=== PATIENT | female | born 1970 | race Caucasian/White ===

== ENCOUNTER 2023-12-02 08:10 | Outpatient (REF) | payer MEDICAID, SELFPAY ==
[2023-12-02 09:51] LABS: MANUAL DIFF FLAG NO
[2023-12-02 10:49] LABS: Basophils Percent Auto 0.7 % (0-2); Eosinophils Absolute Auto 0.1 X10*3/uL (0.0-0.4); Eosinophils Percent Auto 1.3 % (0-4); Hematocrit 43.4 % (37.0-47.0); Hemoglobin 14.9 g/dl (12.0-16.0); Imm Gran Abs Auto 0.02 X10*3/uL (0.00-0.03); Imm Gran Pct Auto 0.4 % (0.0-0.4); Lymphocytes Absolute Auto 2.3 X10*3/uL (1.2-4.9); Lymphocytes Percent Auto 42.9 % (20-40); Mean Corpuscular HGB Conc 34.3 g/dl (31.0-35.0); Mean Corpuscular Hemoglobin 30.3 pg (27.0-33.0); Mean Corpuscular Volume 88.2 fL (80.0-98.0); Mean Platelet Volume 10.8 fL (9.4-12.3); Monocytes Absolute Auto 0.4 X10*3/uL (0.1-1.2); Monocytes Percent Auto 6.5 % (2-11); Neutrophils Absolute Auto 2.6 x10*3/uL (2.0-8.3); Neutrophils Percent Auto 48.2 % (45-73); Platelet Count 238 X10*3/uL (160-400); Red Blood Count 4.92 X10*6/uL (4.20-5.50); White Blood Count 5.4 X10*3/uL (4.8-10.8)
[2023-12-02 11:22] LABS: Alanine Aminotransferase 32 U/L (0-31); Albumin Level 4.4 g/dL (3.5-5.0); Alkaline Phosphatase 107 U/L (39-117); Anion Gap 16 (12-20); Aspartate Amino Transferase 32 U/L (5-31); Bilirubin Total 0.8 mg/dL (0.0-1.0); Blood Urea Nitrogen 12 mg/dL (9-16); Calcium 9.7 mg/dL (8.4-10.2); Carbon Dioxide 21 mmol/L (22-29); Chloride 108 mmol/L (96-108); Estimated Glomerular Filt Rate > 60; Gamma Glutamyl Transpeptidase 23 U/L (7-33); Glucose Random 80 mg/dL (60-115); Potassium 3.6 mmol/L (3.3-5.1); Sodium 141 mmol/L (135-145); Total Protein 7.1 g/dL (6.5-8.0)
[2023-12-02 11:27] LABS: Ferritin 61 ng/mL (10-250)
[2023-12-02 11:30] LABS: HBS Num1 > 1000.00 mIU/mL (0-7.99); HBc Num1 0.07 S/CO (0.00-0.79); HBsAGNum1 0.36 S/CO (0.00-0.99); HIV AB/AG Nonreactive (Nonreactive); HIV Num 1 0.43 S/CO (0.00-0.99); Hepatitis A Antibody IgM 0.22 Index (0-0.79); Hepatitis B Core Antibody Nonreactive (Nonreactive); Hepatitis B Surface Antigen Negative (Negative); ~HepC Num1 0.11 S/CO (0.00-0.79); ~Hepatitis A Antibody IgM Nonreactive (Nonreactive); ~Hepatitis B Surface Antibody REACTIVE (Nonreactive); ~Hepatitis C Antibody Nonreactive (Nonreactive)
[2023-12-06 14:38] LABS: Anti Nuclear Antibody Screen NEGATIVE (NEGATIVE)
[2023-12-07 10:08] LABS: Mitochondrial Antibodies NEGATIVE (NEGATIVE)
[2023-12-08 06:43] LABS: Smooth Muscle Antibody <20 U (<20)
== END 2023-12-02 08:11 | disposition home or self-care (01) ==
LOC: HO.LAB 08:10
PROVIDERS: PCP Internal Medicine; Visit Provider Nurse Practitioner
DX: Z01.818 Encounter for other preprocedural examination (principal); Z11.4 Encounter for screening for human immunodeficiency virus [HIV]; R10.10 Upper abdominal pain, unspecified; K80.20 Calculus of gallbladder without cholecystitis without obstruction; A04.8 Other specified bacterial intestinal infections; R74.01 Elevation of levels of liver transaminase levels
CPT/HCPCS: 36415; 80053; 82728; 82977; 85025; 86015; 86038; 86381; 86704; 86706; 86709; 86803; 87340; 87389; 99212

== ENCOUNTER 2023-12-02 08:10 | Outpatient (AMB) | payer MEDICAID, SELFPAY ==
--- NOTE | 2023-12-02 08:13 | MHC.OFFVIS ---
Intake Vital Signs 12/02/23 08:32 Height 5 ft 7.5 in Weight 235 lb 14.314 oz BMI 36.4 BP 144/92 H Blood Pressure Location Lt brachial Position Sitting Pulse 66 Intake Visit Reasons: Abdominal pain Intake Note: Cherie presents in the office for abdominal pains. CC: She states that she is having abdominal pains, issues with her gall bladder - she states that she needs to have it removed. She states she would like to speak with the provider about the rest of her concerns. Postulant Required: No Allergies No Known Drug Allergies Allergy (Unknown, Verified 12/02/23 08:33) Unknown HPI Abdominal pain HPI Details 53-YEAR-OLD FEMALE HERE for initial evaluation of abdominal pain. She is referred by [facility]. PMX Hypertension Marcos's thyroiditis Depression/insomnia Chronic fatigue syndrome Chronic kidney disease stage IIIA H pylori infection * SURGICAL HISTORY Breast biopsy Varicose vein surgery * ALLERGIES: NKDA * MEDITECH LABS: No labs in our system ULTRASOUND OF THE ABDOMEN PERFORMED AT [facility] 12/2021 RESULT: US Abdomen Comp US Abdomen Comp Reason: CHRONIC KIDNEY DISEASE; Clinical Question(s): Other: COMPARISON: None. FINDINGS: Liver: Normal in size and echotexture. No focal lesion is seen. Main portal vein patent with normal hepatopetal direction of flow. Gallbladder: Multiple stones. Normal wall thickness. No pericholecystic fluid. Negative Guerrero sign. Biliary Tree: No intrahepatic or extrahepatic bile duct dilation is identified. Common duct: 0.7 cm. Pancreas: No abnormality in the visualized portions of the pancreas. Spleen: Normal in size and echotexture. Right kidney: 11.5 cm in length. Normal parenchymal echotexture and thickness. No hydronephrosis, stone or mass. Left kidney: 10.3 cm in length. Normal parenchymal echotexture and thickness. No hydronephrosis, stone or mass. Aorta: Normal caliber and contour. Inferior vena cava: Normal. Other: No free fluid. IMPRESSION: 1. Normal-appearing kidneys. No hydronephrosis. 2. Cholelithiasis. WSN: [id number] TODAY'S VISIT At age 21 she had HP, was told it was too expensive to treat. She has been having burping and problems, andjuleee asked to be tested for HP, and she was treated and then re tested and it confirmed eradication. She also had an incidental finding of gallstones. 6 mos ago she stared having pain in the epigastrum with HB and regurgitation and dyspepsia. At times the pain would move to the right and to her back. She even presented to the ER and she was told she had gallstones again and she was told she needed to have it removed. She was seen [facility] for this. She does note that that the sx are triggered by fattier food/fried foods. The pain tends to come in the middle of the night and will last for hours before subsiding. It starts as a dull ache and progresses to more of a sharp pain. At its worst it is 8/10. She does not remember whether it is colicky. She had a colon in 2018 with TICs only. She also had some lab work that showed some elevated liver enzymes but her PCP told her that the insurance would not pay for the repeat liver tests. I verify via [facility] that she does have transaminitis with a variable elevation of the alk-phos and a normal bilirubin. Her aunt maternal of pancreatic cancer and there are autoimmune problems including type 1 NIDDM and Hashimotos. No stomach or throat cancer. She will have some episodes of stool urgency but stools are soft and at times ?floaty.? She notes that blueberries will go through whole. Has labs on [facility] site. There is no family history of liver disease known. Will get a HIDA scan and an EGD to confirm if gallbladder disease is the problem in to make sure there is not something else like peptic ulcer disease contributing to her symptom set. Return office visit in 6 weeks to go over her liver labs and of course after the EGD and HIDA scan [facility] Medical History (Updated 12/02/23 @ 09:12 by KWABENA Prabhakar) Hypertension Surgical History (Updated 12/02/23 @ 08:33 by GOPAL Nur) Hx of colonoscopy History of varicose vein ligation and stripping H/O breast biopsy Review of Systems Const Denies fatigue, Denies fever(s), Denies night sweats, Denies poor appetite and Denies weight loss Eyes Details: glasses Reports requires corrective lenses ENT Reports Normal hearing present, Denies dental pain, Denies dysphagia, Denies hearing loss, Denies mouth pain, Denies odynophagia, Denies throat swelling, Denies tongue swelling and Reports other (Dentition adequate) Card Reports no additional complaints Resp Reports no additional complaints GI Details: Fecal urgency with some biliary/yellow stools Reports abdominal pain, Denies melena, Denies bloating, Denies hematochezia, Denies constipation, Denies GI cramping, Denies dysphagia, Denies excessive flatus, Denies early satiety, Denies heartburn, Denies diarrhea, Denies nausea, Denies odynophagia, Denies vomiting and Denies hematemesis Skin/Breast Denies pruritus, Denies lesions, Denies rash and Denies jaundice Neuro Reports Normal hearing present and Denies Abnormal speech present Endo Denies fatigue Aller/Immun Denies throat swelling and Denies tongue swelling Physical Exam Vital Signs: Last Vital Signs Pulse 66 12/02/23 08:32 BP 144/92 H 12/02/23 08:32 BMI result Body Mass Index 36.4 Const General: cooperative, no acute distress, well developed and well groomed Nutritional Appearance: well nourished and obese Orientation/consciousness: oriented to person, oriented to place and oriented to time Limitations: No language barrier HEENT Head: Yes normocephalic and Yes atraumatic Eyes General: appearance normal, both eyes and all related structures Pupils: Equal, round and reactive pupils present Neck Neck: Yes normal visual inspection and Yes no lymphadenopathy Thyroid: Thyroid normal Resp Effort & Inspection: normal respiratory effort and able to speak in complete sentences Auscultation: clear to auscultation bilaterally Cardio Rate: regular rate Rhythm: regular rhythm Heart sounds: Normal, physiologic split S2 sound present Peripheral pulses: radial pulses present and posterior tibial pulses present GI Inspection: No distended, No Abdominal panniculus present and Yes obesity Palpation (GI): Soft to palpation, Tenderness to palpation present (GI) in the RUQ, no guarding, not rigid and No hepatosplenomegaly present Percussion: Yes normal to percussion Auscultation: normal bowel sounds Rectal Exam - Female: deferred Skin General skin exam: no rashes or lesions noted, turgor normal, skin not dry, no jaundice, No spider nevi and no striae Rashes: no rashes Nails: normal Neuro General: oriented to person, oriented to place and oriented to time Cranial nerves: Yes Equal, round and reactive pupils present and Yes Normal hearing present Speech: No Abnormal speech present Extrem General: Yes normal to inspection, No clubbing, No cyanosis and No edema Psych Appearance: grossly normal and well kempt Mental Status: mental status grossly normal Speech and movement: Normal speech and movement present Affect: normal affect Attitude: cooperative Thought process: Normal thought process present and not confabulating Thought content: Normal thought content present Insight: Good insight present (Psych) Judgement: Good judgement present (Psych) Assessment & Plan Assessment & Plan (1) Upper abdominal pain: Code(s): R10.10 - Upper abdominal pain, unspecified (2) Gallstones: Code(s): K80.20 - Calculus of gallbladder without cholecystitis without obstruction (3) H. pylori infection: Code(s): A04.8 - Other specified bacterial intestinal infections (4) Transaminitis: Code(s): R74.01 - Elevation of levels of liver transaminase levels (5) Pre-op examination: Code(s): Z01.818 - Encounter for other preprocedural examination Plan At age 21 she had HP, was told it was too expensive to treat. She has been having burping and problems, andshe asked to be tested for HP, and she was treated and then re tested and it confirmed eradication. She also had an incidental finding of gallstones. 6 mos ago she stared having pain in the epigastrum with HB and regurgitation and dyspepsia. At times the pain would move to the right and to her back. She even presented to the ER and she was told she had gallstones again and she was told she needed to have it removed. She was seen [facility] for this. She does note that that the sx are triggered by fattier food/fried foods. The pain tends to come in the middle of the night and will last for hours before subsiding. It starts as a dull ache and progresses to more of a sharp pain. At its worst it is 8/10. She does not remember whether it is colicky. She had a colon in 2018 with TICs only. She also had some lab work that showed some elevated liver enzymes but her PCP told her that the insurance would not pay for the repeat liver tests. I verify via [facility] that she does have transaminitis with a variable elevation of the alk-phos and a normal bilirubin. Her aunt maternal of pancreatic cancer and there are autoimmune problems including type 1 NIDDM and Hashimotos. No stomach or throat cancer. She will have some episodes of stool urgency but stools are soft and at times ?floaty.? She notes that blueberries will go through whole. Has labs on [facility] site. There is no family history of liver disease known. Will get a HIDA scan and an EGD to confirm if gallbladder disease is the problem in to make sure there is not something else like peptic ulcer disease contributing to her symptom set. Return office visit in 6 weeks to go over her liver labs and of course after the EGD and HIDA scan Orders: Orders Comprehensive Met. Panel Today A04.8 - Other specified bacterial intestinal infections, K80.20 - Calculus of gallbladder without cholecystitis without obstruction, R10.10 - Upper abdominal pain, unspecified, R74.01 - Elevation of levels of liver transaminase levels, Z01.818 - Encounter for other preprocedural examination Complete Blood Count Auto Diff Today A04.8 - Other specified bacterial intestinal infections, K80.20 - Calculus of gallbladder without cholecystitis without obstruction, R10.10 - Upper abdominal pain, unspecified, R74.01 - Elevation of levels of liver transaminase levels, Z01.818 - Encounter for other preprocedural examination AGATHA Reflex Titer and Pattern Today A04.8 - Other specified bacterial intestinal infections, K80.20 - Calculus of gallbladder without cholecystitis without obstruction, R10.10 - Upper abdominal pain, unspecified, R74.01 - Elevation of levels of liver transaminase levels, Z01.818 - Encounter for other preprocedural examination Ferritin Today A04.8 - Other specified bacterial intestinal infections, K80.20 - Calculus of gallbladder without cholecystitis without obstruction, R10.10 - Upper abdominal pain, unspecified, R74.01 - Elevation of levels of liver transaminase levels, Z01.818 - Encounter for other preprocedural examination Gamma Glutamyl Transpeptidase Today A04.8 - Other specified bacterial intestinal infections, K80.20 - Calculus of gallbladder without cholecystitis without obstruction, R10.10 - Upper abdominal pain, unspecified, R74.01 - Elevation of levels of liver transaminase levels, Z01.818 - Encounter for other preprocedural examination Smooth Muscle Antibody Today A04.8 - Other specified bacterial intestinal infections, K80.20 - Calculus of gallbladder without cholecystitis without obstruction, R10.10 - Upper abdominal pain, unspecified, R74.01 - Elevation of levels of liver transaminase levels, Z01.818 - Encounter for other preprocedural examination EGD with Rodríguez - GI Use Only Today A04.8 - Other specified bacterial intestinal infections, K80.20 - Calculus of gallbladder without cholecystitis without obstruction, R10.10 - Upper abdominal pain, unspecified, R74.01 - Elevation of levels of liver transaminase levels, Z01.818 - Encounter for other preprocedural examination Hepatitis A,B,C Profile Today A04.8 - Other specified bacterial intestinal infections, K80.20 - Calculus of gallbladder without cholecystitis without obstruction, R10.10 - Upper abdominal pain, unspecified, R74.01 - Elevation of levels of liver transaminase levels, Z01.818 - Encounter for other preprocedural examination HIV Ab/Ag Today A04.8 - Other specified bacterial intestinal infections, K80.20 - Calculus of gallbladder without cholecystitis without obstruction, R10.10 - Upper abdominal pain, unspecified, R74.01 - Elevation of levels of liver transaminase levels, Z01.818 - Encounter for other preprocedural examination Mitochondrial Antibody Today A04.8 - Other specified bacterial intestinal infections, K80.20 - Calculus of gallbladder without cholecystitis without obstruction, R10.10 - Upper abdominal pain, unspecified, R74.01 - Elevation of levels of liver transaminase levels, Z01.818 - Encounter for other preprocedural examination Coding Level of Care Code New Pt Level 3 (54092) Diagnoses Upper abdominal pain R10.10 Gallstones K80.20 H. pylori infection A04.8 Transaminitis R74.01 Pre-op examination Z01.818
[2023-12-02 08:32] VITALS: BP 144/92; PULSE 66; BMI 36.4
== END 2023-12-02 09:21 | disposition home or self-care (01) ==
PROVIDERS: PCP Internal Medicine; Visit Provider Nurse Practitioner
DX: R10.10 Upper abdominal pain, unspecified (principal); K80.20 Calculus of gallbladder without cholecystitis without obstruction; A04.8 Other specified bacterial intestinal infections; R74.01 Elevation of levels of liver transaminase levels; Z01.818 Encounter for other preprocedural examination
CPT/HCPCS: 99203

== ENCOUNTER 2024-05-30 08:58 | Outpatient (AMB) | payer SELFPAY ==
[2024-05-30 09:02] VITALS: BP 138/78; PULSE 71; BMI 36.4
--- NOTE | 2024-05-30 09:02 | MHC.OFFVIS ---
Vital Signs 05/30/24 09:02 Height 5 ft 7.5 in Weight 235 lb 14.314 oz BMI 36.4 BP 138/78 Blood Pressure Location Lt brachial Position Sitting Pulse 71 Intake Visit Reasons: Rectal pain and bleeding Intake Note: Cherie presents to in office follow up of labs and rectal pain and bleeding. CC: Patient c/o rectal bleeding and rectal pain most recently the last week. Denies other GI symptoms. [employer] Required: No Accompanied by: Self / Same As Patient Allergies No Known Allergies Allergy (Verified 05/30/24 09:11) HPI HPI Rectal pain and bleeding: Details: Assessment & Plan (1) Upper abdominal pain: Code(s): R10.10 - Upper abdominal pain, unspecified (2) Gallstones: Code(s): K80.20 - Calculus of gallbladder without cholecystitis without obstruction (3) H. pylori infection: Code(s): A04.8 - Other specified bacterial intestinal infections (4) Transaminitis: Code(s): R74.01 - Elevation of levels of liver transaminase levels (5) Pre-op examination: Code(s): Z01.818 - Encounter for other preprocedural examination Plan At age 21 she had HP, was told it was too expensive to treat. She has been having burping and problems, andshe asked to be tested for HP, and she was treated and then re tested and it confirmed eradication. She also had an incidental finding of gallstones. 6 mos ago she stared having pain in the epigastrum with HB and regurgitation and dyspepsia. At times the pain would move to the right and to her back. She even presented to the ER and she was told she had gallstones again and she was told she needed to have it removed. She was seen [facility] for this. She does note that that the sx are triggered by fattier food/fried foods. The pain tends to come in the middle of the night and will last for hours before subsiding. It starts as a dull ache and progresses to more of a sharp pain. At its worst it is 8/10. She does not remember whether it is colicky. She had a colon in 2018 with TICs only. She also had some lab work that showed some elevated liver enzymes but her PCP told her that the insurance would not pay for the repeat liver tests. I verify via [facility] that she does have transaminitis with a variable elevation of the alk-phos and a normal bilirubin. Her aunt maternal of pancreatic cancer and there are autoimmune problems including type 1 NIDDM and Hashimotos. No stomach or throat cancer. She will have some episodes of stool urgency but stools are soft and at times ?floaty.? She notes that blueberries will go through whole. Has labs on [facility] site. There is no family history of liver disease known. Will get a HIDA scan and an EGD to confirm if gallbladder disease is the problem in to make sure there is not something else like peptic ulcer disease contributing to her symptom set. Return office visit in 6 weeks to go over her liver labs and of course after the EGD and HIDA scan Orders: Orders Comprehensive Met. Panel Today A04.8 - Other specified bacterial intestinal infections, K80.20 - Calculus of gallbladder without cholecystitis without obstruction, R10.10 - Upper abdominal pain, unspecified, R74.01 - Elevation of levels of liver transaminase levels, Z01.818 - Encounter for other preprocedural examination Complete Blood Count Auto Diff Today A04.8 - Other specified bacterial intestinal infections, K80.20 - Calculus of gallbladder without cholecystitis without obstruction, R10.10 - Upper abdominal pain, unspecified, R74.01 - Elevation of levels of liver transaminase levels, Z01.818 - Encounter for other preprocedural examination AGATHA Reflex Titer and Pattern Today A04.8 - Other specified bacterial intestinal infections, K80.20 - Calculus of gallbladder without cholecystitis without obstruction, R10.10 - Upper abdominal pain, unspecified, R74.01 - Elevation of levels of liver transaminase levels, Z01.818 - Encounter for other preprocedural examination Ferritin Today A04.8 - Other specified bacterial intestinal infections, K80.20 - Calculus of gallbladder without cholecystitis without obstruction, R10.10 - Upper abdominal pain, unspecified, R74.01 - Elevation of levels of liver transaminase levels, Z01.818 - Encounter for other preprocedural examination Gamma Glutamyl Transpeptidase Today A04.8 - Other specified bacterial intestinal infections, K80.20 - Calculus of gallbladder without cholecystitis without obstruction, R10.10 - Upper abdominal pain, unspecified, R74.01 - Elevation of levels of liver transaminase levels, Z01.818 - Encounter for other preprocedural examination Smooth Muscle Antibody Today A04.8 - Other specified bacterial intestinal infections, K80.20 - Calculus of gallbladder without cholecystitis without obstruction, R10.10 - Upper abdominal pain, unspecified, R74.01 - Elevation of levels of liver transaminase levels, Z01.818 - Encounter for other preprocedural examination EGD with Rodríguez - GI Use Only Today A04.8 - Other specified bacterial intestinal infections, K80.20 - Calculus of gallbladder without cholecystitis without obstruction, R10.10 - Upper abdominal pain, unspecified, R74.01 - Elevation of levels of liver transaminase levels, Z01.818 - Encounter for other preprocedural examination Hepatitis A,B,C Profile Today A04.8 - Other specified bacterial intestinal infections, K80.20 - Calculus of gallbladder without cholecystitis without obstruction, R10.10 - Upper abdominal pain, unspecified, R74.01 - Elevation of levels of liver transaminase levels, Z01.818 - Encounter for other preprocedural examination HIV Ab/Ag Today A04.8 - Other specified bacterial intestinal infections, K80.20 - Calculus of gallbladder without cholecystitis without obstruction, R10.10 - Upper abdominal pain, unspecified, R74.01 - Elevation of levels of liver transaminase levels, Z01.818 - Encounter for other preprocedural examination Mitochondrial Antibody Today A04.8 - Other specified bacterial intestinal infections, K80.20 - Calculus of gallbladder without cholecystitis without obstruction, R10.10 - Upper abdominal pain, unspecified, R74.01 - Elevation of levels of liver transaminase levels, Z01.818 - Encounter for other preprocedural examination LABS: Laboratory Tests 12/02/23 09:49 WBC 5.4 Hgb 14.9 Hct 43.4 Plt Count 238 Estimated GFR > 60 Total Bilirubin 0.8 GGT 23 AST 32 H ALT 32 H Alkaline Phosphatase 107 AGATHA Screen NEGATIVE Anti-Mitochondrial Ab NEGATIVE Anti-Smooth Muscle Ab <20 Hepatitis A IgM Ab Nonreactive Hep Bs Antigen Negative Hep Bs Antibody REACTIVE Hep B Core Total Ab Nonreactive Hepatitis C Ab (EIA) Nonreactive HIV 1&2 Ab/P24 Ag 4thGn Nonreactive EGD SCHEDULED FOR August BIOPSY TODAY'S VISIT She never had the HIDA scan, apparently there was a problem with scheduling. In the meantime, she had an emergent ozzy at [facility] and is feeling generally better. She still has some regurg, marilyn if she drinks too much fluids. Her BM's are normal and formed, no diarrhea. BUT she has been whalen ving RB on the TT and rectal pain like a cut. This was preceded by itching and she had some relief from roid cream. She also feels rectal burning. Her stools smell weird, sulferish. Adding colonoscopy to EGD, getting copy of last scope 2018 form [facility]. She bought OTC roid cream and will try - educated on importance of rectal applicator. Rectal exam roids at 9 and 6 oclock with area of pain /irritation at about 5 oclock, no active infection multiple skin tags. ROV 6 weeks. [facility] Medical History (Updated 06/07/24 @ 15:41 by KWABENA Prabhakar) Upper abdominal pain Marcos's thyroiditis Chronic fatigue Depression Hypertension Surgical History Hx of colonoscopy History of varicose vein ligation and stripping H/O breast biopsy Social History Alcohol intake: current Alcohol intake frequency: a few times a month Patient Tobacco Use Status: Never used Tobacco Review of Systems Const Denies fatigue, Denies fever(s), Denies night sweats, Denies poor appetite and Denies weight loss Eyes Details: glasses Reports requires corrective lenses ENT Reports Normal hearing present, Denies dental pain, Denies dysphagia, Denies hearing loss, Denies mouth pain, Denies odynophagia, Denies throat swelling, Denies tongue swelling and Reports other (Dentition adequate) Card Reports no additional complaints Resp Reports no additional complaints GI Details: Denies abdominal pain, Denies melena, Denies bloating, Reports hematochezia, Denies constipation, Denies GI cramping, Denies dysphagia, Denies excessive flatus, Denies early satiety, Denies heartburn, Denies diarrhea, Denies nausea, Denies odynophagia, Denies vomiting and Denies hematemesis Skin/Breast Denies pruritus, Denies lesions, Denies rash and Denies jaundice Neuro Reports Normal hearing present and Denies Abnormal speech present Endo Denies fatigue Aller/Immun Denies throat swelling and Denies tongue swelling Physical Exam Vital Signs: Last Vital Signs Pulse 71 05/30/24 09:02 BP 138/78 05/30/24 09:02 BMI result Body Mass Index 36.4 Const General: cooperative, no acute distress, well developed and well groomed Nutritional Appearance: well nourished and obese Orientation/consciousness: oriented to person, oriented to place and oriented to time Limitations: No language barrier HEENT Head: Yes normocephalic and Yes atraumatic Eyes General: appearance normal, both eyes and all related structures Pupils: Equal, round and reactive pupils present Neck Neck: Yes normal visual inspection and Yes no lymphadenopathy Thyroid: Thyroid normal Resp Effort & Inspection: normal respiratory effort and able to speak in complete sentences Auscultation: clear to auscultation bilaterally Cardio Rate: regular rate Rhythm: regular rhythm Heart sounds: Normal, physiologic split S2 sound present Peripheral pulses: radial pulses present and posterior tibial pulses present GI Inspection: No distended, No Abdominal panniculus present and Yes obesity Palpation (GI): Soft to palpation, nontender, no guarding, not rigid and No hepatosplenomegaly present Percussion: Yes normal to percussion Auscultation: normal bowel sounds Rectal Exam - Female: deferred Skin General skin exam: no rashes or lesions noted, turgor normal, skin not dry, no jaundice, No spider nevi and no striae Rashes: no rashes Nails: normal Neuro General: oriented to person, oriented to place and oriented to time Cranial nerves: Yes Equal, round and reactive pupils present and Yes Normal hearing present Speech: No Abnormal speech present Extrem General: Yes normal to inspection, No clubbing, No cyanosis and No edema Psych Appearance: grossly normal and well kempt Mental Status: mental status grossly normal Speech and movement: Normal speech and movement present Affect: normal affect Attitude: cooperative Thought process: Normal thought process present and not confabulating Thought content: Normal thought content present Insight: Fair insight present (Psych) Judgement: Fair judgement present (Psych) Results Reviewed Results Reviewed: Laboratory Tests 12/02/23 09:49 WBC 5.4 Hgb 14.9 Hct 43.4 Plt Count 238 Estimated GFR > 60 Total Bilirubin 0.8 GGT 23 AST 32 H ALT 32 H Alkaline Phosphatase 107 Assessment & Plan Assessment & Plan (1) Rectal bleeding: Code(s): K62.5 - Hemorrhage of anus and rectum Category: Medical (2) Pre-op examination: Code(s): Z01.818 - Encounter for other preprocedural examination Category: Medical (3) Gallstones: Comment: Patient had emergent cholecystectomy at [facility] Code(s): K80.20 - Calculus of gallbladder without cholecystitis without obstruction Category: Medical Plan She never had the HIDA scan, apparently there was a problem with scheduling. In the meantime, she had an emergent ozzy at [facility] and is feeling generally better. She still has some regurg, marilyn if she drinks too much fluids. Her BM's are normal and formed, no diarrhea. BUT she has been whalen ving RB on the TT and rectal pain like a cut. This was preceded by itching and she had some relief from roid cream. She also feels rectal burning. Her stools smell weird, sulferish. Adding colonoscopy to EGD, getting copy of last scope 2018 form [facility]. She bought OTC roid cream and will try - educated on importance of rectal applicator. Rectal exam roids at 9 and 6 oclock with area of pain /irritation at about 5 oclock, no active infection multiple skin tags. There are no prior problems with anesthesia or sedation. She denies any problems with anesthesia or sedation. There are no infectious disease problems. There is no known family history of cancer or polyps. ROV 6 weeks. Orders: Orders EGD/[place] Combo - GI Use Only 05/30/24 K62.5 - Hemorrhage of anus and rectum, Z01.818 - Encounter for other preprocedural examination Medications: New sodium,potassium,mag sulfates 17.5-3.13-1.6 gram (Suprep Bowel Prep Kit) 480 mL orally; FOR COLONOSCOPY PREP 354 mL 0RF Coding Level of Care Code Est Pt Level 4 (92707) Diagnoses Rectal bleeding K62.5 Pre-op examination Z01.818 Gallstones K80.20
== END 2024-05-30 10:05 | disposition home or self-care (01) ==
PROVIDERS: PCP Internal Medicine; Visit Provider Nurse Practitioner
DX: K62.5 Hemorrhage of anus and rectum (principal); Z01.818 Encounter for other preprocedural examination; K80.20 Calculus of gallbladder without cholecystitis without obstruction
CPT/HCPCS: 99214

== ENCOUNTER → 2024-05-30 08:58 | Outpatient (BNVA) | payer SELFPAY | PROVIDERS: PCP Internal Medicine; Visit Provider Nurse Practitioner | DX: Z01.818 Encounter for other preprocedural examination (principal); K80.20 Calculus of gallbladder without cholecystitis without obstruction; K62.5 Hemorrhage of anus and rectum | CPT/HCPCS: 99212 ==

== ENCOUNTER 2024-08-17 07:36 | Day surgery (SDC) | payer BC, SELFPAY ==
[2024-08-15 11:10] VITALS: BMI 36.3
--- NOTE | 2024-08-16 10:22 | P.CONAN_ITS ---
Documented by User: Maryam Morel NP 08/16/24 10:22 HPI - Anesthesia Eval Consult details Narrative: 54yo F for Upper Endoscopy and Colonoscopy PMFSH Active Problems Active Problems: All Active Problems Rectal bleeding (Acute) Pre-op examination (Acute) Transaminitis (Acute) Gallstones (Acute) Insomnia (Acute) Depression (Acute) H. pylori infection (Acute) Stage 3a chronic kidney disease (Acute) Chronic fatigue syndrome (Acute) Marcos's thyroiditis (Acute) Past Medical History Medical History (Updated 06/07/24 @ 15:41 by KWABENA Prabhakar) Marcos's thyroiditis Chronic fatigue Depression Upper abdominal pain Hypertension Surgical History Surgical History (Updated 08/15/24 @ 11:13 by Molly Bermudez RN) Hx of cholecystectomy Hx of colonoscopy History of varicose vein ligation and stripping H/O breast biopsy Social History Social History (Reviewed 05/30/24 @ 09:10 by Keren Zheng [facility]) Alcohol intake: current Alcohol intake frequency: holidays/special occasions only Patient Tobacco Use Status: Never used Tobacco Have you been hit, kicked, punched, or otherwise hurt by someone within the past year? If so, by whom?: No Are you DNR?: No Advance Directives: No Advance Directives Information Provided: Yes Meds Allergies Allergy/AdvReac Type Severity Reaction Status Date / Time No Known Allergies Allergy Verified 05/30/24 09:11 Home Medications ?Medication ?Instructions ?Recorded ?Confirmed ?Last Taken ?Type albuterol sulfate 90 mcg/actuation 2 puff inhalation Q4-6H PRN 12/01/23 04/11/24 Unknown History aerosol inhaler Shortness Of Breath Or Wheezing levothyroxine 200 mcg tablet 200 mcg PO DAILY 12/01/23 04/11/24 08/17/24 History trazodone 150 mg tablet 150 mg PO BEDTIME 12/01/23 04/11/24 08/16/24 History Exam Height,Weight and Vital Signs: Height 5 ft 7.5 in Weight 106.594 kg Assessment and Plan Assessment Anesthesia Assessment: Chart Reviewed Documented by User: Jp Narayan MD 08/17/24 09:22 [facility] Past Medical History Medical History (Updated 06/07/24 @ 15:41 by KWABENA Prabhakar) Marcos's thyroiditis Chronic fatigue Depression Upper abdominal pain Hypertension Family History Family history of problems with anesthesia: No Surgical History Surgical History (Updated 08/15/24 @ 11:13 by Molly Bermudez RN) Hx of cholecystectomy Hx of colonoscopy History of varicose vein ligation and stripping H/O breast biopsy History of Problems with Anesthesia: No Social History Social History Alcohol intake: current Alcohol intake frequency: holidays/special occasions only Patient Tobacco Use Status: Never used Tobacco Have you been hit, kicked, punched, or otherwise hurt by someone within the past year? If so, by whom?: No Are you DNR?: No Advance Directives: No Advance Directives Information Provided: Yes Meds Allergies Allergy/AdvReac Type Severity Reaction Status Date / Time No Known Allergies Allergy Verified 05/30/24 09:11 Home Medications ?Medication ?Instructions ?Recorded ?Confirmed ?Last Taken ?Type albuterol sulfate 90 mcg/actuation 2 puff inhalation Q4-6H PRN 12/01/23 04/11/24 Unknown History aerosol inhaler Shortness Of Breath Or Wheezing levothyroxine 200 mcg tablet 200 mcg PO DAILY 12/01/23 04/11/24 08/17/24 History trazodone 150 mg tablet 150 mg PO BEDTIME 12/01/23 04/11/24 08/16/24 History Exam Airway Mallampati Class: II TM Dist: <=3cm Neck ROM: Full Loose/Missing/Broken Teeth: No Heart: ok Lungs: ok Assessment and Plan Assessment Anesthesia Assessment: Anesthesia Plan Discussed Final Anesthetic Review Family History of Problems with Anesthesia: No History of Problems with Anesthesia: No NPO: Yes ASA Class: III Final Preanesthetic Review: No Changes in Pt Med Stat, Meds/Allgs Chart Reviewed, Consent Obtained/Reviewed and Anes Risks/Benef Reviewed Patient Risk: Intermediate Procedure Risk: Intermediate Anesthetic Plan Anesthetic Plan: Agree w/ Assess. and Plan Disposition: Standard PACU
--- NOTE | ~2024-08-17 | XR_ITS ---
EXAMINATION: XR ABDOMEN KUB CLINICAL INDICATION: s/p colonoscopy c/o abdominal pain, r/o perf COMPARISON: None available. TECHNIQUE: Upright and supine AP views of the abdomen. FINDINGS: No intra-abdominal free air. Nonobstructive bowel gas pattern. No abnormal soft tissue calcification. Right upper quadrant surgical clips. No acute osseous abnormality. XR/XR KUB IMPRESSION: No intra-abdominal free air. Nonobstructive bowel gas pattern. Electronically signed by: Marvin Castelan MD 08/17/2024 03:06 PM [facility]
--- NOTE | ~2024-08-17 | XR_ITS ---
EXAMINATION: XR CHEST CLINICAL INFORMATION: Chest post colonoscopy. Abdominal pain. Evaluate for perforation. COMPARISON: None available. TECHNIQUE: Frontal view of the chest was obtained. FINDINGS: No airspace consolidation. No pleural effusion or pneumothorax. Unremarkable cardiomediastinal silhouette. No free air beneath the hemidiaphragms. XR/XR chest 1V IMPRESSION: 1. No acute cardiopulmonary findings. 2. No free air beneath the hemidiaphragms. Electronically signed by: Marvin Castelan MD 08/17/2024 03:05 [facility]
[2024-08-17 07:59] VITALS: BP 155/95; PULSE 70; RESP 20; TEMP 36.9; O2SAT 96; BMI 36.6
[2024-08-17] MEDS: Lactated Ringers 1,000 ML 100 ML IVCONT (08:18)
--- NOTE | 2024-08-17 08:31 | P.HPSUR_ITS ---
Pre-Procedural Eval Section A - 24 Hr Update-Section A only Date of Service: 08/17/24 Section B - Complete if H&P > 30 days Chief Complaint: Calculus of gallbladder,rectal bleed,pain Relevant Family History (Specify if Yes): No Relevant Social History: None Present Medications: see Short Stay Collaborative assessment Medical History: Significant History (Marcos's thyroiditis Chronic fatigue Depression Upper abdominal pain Hypertension) History of Previous Operations: Relevant previous surgery/procedure and date(s) (Hx of cholecystectomy Hx of colonoscopy History of varicose vein ligation and stripping H/O breast biopsy) Allergies: Allergies Allergy/AdvReac Type Severity Reaction Status Date / Time No Known Allergies Allergy Verified 05/30/24 09:11 Review of Systems Sugical H&P ROS: Negative: Constitution, Cardiovascular, Respiratory, Neurolog ical, Psychiatric, Hem-Onc, Allergic/Immunologic, Gastrointestinal, Genitourinary, Musculoskeletal, Integumentary, Endocrine and Eyes/Ears/Nose/Throat Exam Surgical H&P Exam: Normal: HEENT, Normal: Heart, Normal: Lungs, Normal: Extremities, Normal: Abdomen, Normal: Skin and Normal: Neurological Plan Diagnosis/Plan: Unchanged I have reviewed the history and physical and performed a pertinent physical examination on my patient. No changes have occurred unless specified. Time Spent With Patient Time: Total time managing care of this patient today ____ minutes.
--- NOTE | 2024-08-17 09:56 | P.OPN-COLO_ITS ---
Colonoscopy Operative Note Operative Note Date of Service: 08/17/24 Narrative: Operative Information Procedure Description: EGD, Colonoscopy Indication: rectal bleeding and abdominal pain Anesthesia: MAC FLEXIBLE TRANSORAL UPPER GASTROINTESTINAL ENDOSCOPY AND COLONOSCOPY PROCEDURE NOTE UPPER ENDOSCOPY Consent: Indications for the procedure and potential complications of bleeding, perforation, reaction to medications and missed diagnosis were discussed with the patient and informed consent was obtained. Instrument: Olympus GIF H 190 J mid size upper endoscope Monitoring: Vital signs and clinical assessment, continuous EKG monitoring, Pulse oximetry, Carbon Dioxide monitoring and blood pressure monitoring were done throughout the procedure. Procedure: The patient was placed in the left lateral decubitis position and pre-procedure medications were administered and a bite block was placed. The endoscope was inserted into the mouth and advanced under direct vision to the third part of duodenum. A careful inspection was made as the upper endoscope was withdrawn including a retroflexed examination of the proximal stomach; Findings and interventions are described below. Findings: Larynx:normal Esophagus: GE junction at 38 cm, diaphragm hiatus at 38 cm, mild esophagitis bx taken from random esophagus and GEJ Stomach: Patchy erythema. Biopsies were obtained. Grade 2 flap valve on retroflexed examination of the cardia. Duodenum: Normal bulb and descending duodenum, bx taken Intervention: Biopsies as noted above, COLONOSCOPY Instrument: Olympus variable stiffness pediatric scope 190L Colonoscopy Monitoring: Vital signs and clinical assessment, continuous EKG monitoring, Pulse oximetry, Carbon Dioxide monitoring and blood pressure monitoring were done throughout the procedure. Colon withdrawal time was 14 minutes. Procedure: The patient was placed in the left lateral decubitis position and pre-procedure medications were administered. After a digital rectal examination of the ano-rectum, the video colonoscope was inserted into the rectum and advanced through the colon to the cecum/TI. The colonoscope was slowly withdrawn in a retrograde panoramic fashion and the colon mucosa was carefully examined including a retroflexed view of the rectum. Findings and interventions are described below. Procedure Difficulty:moderate Findings: Terminal Ileum-normal, bx taken Random colo bx from right and left colon Cecum: 5-6 mm sessile polyp removed with cold snare Ascending Colon: 6-7 mm sessile polyp removed with cold snare Transverse Colon -normal Descending Colon:normal Sigmoid Colon: moderate severe diverticulosis , 12 mm sessile polyp noted in distal sigmoid, lifted and injected with 2 cc of epinephrine then removed with cold snare Rectum: Retroflexion with small internal hemorrhoids, grade I Anorectum - normal Colon preparation: [place] Bowel Preparation Scale Right colon; 2 Transverse colon: 2 Left colon; 2 (0 = Unprepared colon segment with mucosa not seen due to solid stool that cannot be cleared. 1 = Portion of mucosa of the colon segment seen, but other areas of the colon segment not well seen due to staining, residual stool and/or opaque liquid. 2 = Minor amount of residual staining, small fragments of stool and/or opaque liquid, but mucosa of colon segment seen well. 3 = Entire mucosa of colon segment seen well with no residual staining, small fragments of stool or opaque liquid) Impression and Post Procedure Diagnosis: Endoscopy Findings: gastritis esophagitis Colonoscopy Findings: diverticulosis colon polyps x 3 internal hemorrhoids Plan: Await Pathology results Repeat Colonoscopy in 3 years due to polyps or earlier if clinically indicated High fiber diet leaflet avoid straining at stool, epsom salts and sitz bath, anusol supps or cream if H pylori pos then treat consider trial of PPI Above findings were reviewed with the patient and relevant handouts were provided if indicated.
[2024-08-17 10:03] VITALS: BP 140/88; PULSE 69; RESP 18; TEMP 36.1; O2SAT 96
[2024-08-17 10:18] VITALS: BP 157/96; PULSE 65; RESP 18; O2SAT 99
[2024-08-17 10:33] VITALS: BP 154/74; PULSE 60; RESP 17; TEMP 36.1; O2SAT 95
[2024-08-17 11:07] VITALS: BP 147/76; PULSE 62; RESP 17; TEMP 36.1; O2SAT 97
[2024-08-17] MEDS: Simethicone 80 MG TAB.CHEW PO (11:50)
[2024-08-17] MEDS: Acetaminophen 325 MG TABLET 975 MG PO (12:06)
[2024-08-17] MEDS: Dicyclomine HCl 10 MG CAPSULE PO (12:07)
[2024-08-17 12:17] VITALS: BP 156/95; PULSE 70; RESP 16; TEMP 36.1; O2SAT 97
== END 2024-08-17 13:44 | disposition home or self-care (01) ==
PROVIDERS: PCP Internal Medicine; Visit Provider Internal Medicine Gastroenterology
PROC: (CPT 45385; principal; 2024-08-17 09:00)
DX: D12.0 Benign neoplasm of cecum (principal); D12.2 Benign neoplasm of ascending colon; D12.5 Benign neoplasm of sigmoid colon; K57.30 Diverticulosis of large intestine without perforation or abscess without bleeding; K64.0 First degree hemorrhoids; K62.5 Hemorrhage of anus and rectum; K29.70 Gastritis, unspecified, without bleeding; K20.80 Other esophagitis without bleeding; R10.10 Upper abdominal pain, unspecified; I12.9 Hypertensive chronic kidney disease with stage 1 through stage 4 chronic kidney disease, or unspecified chronic kidney disease; N18.30 Chronic kidney disease, stage 3 unspecified; E06.3 Autoimmune thyroiditis; R74.01 Elevation of levels of liver transaminase levels; G93.32 Myalgic encephalomyelitis/chronic fatigue syndrome; Z79.899 Other long term (current) drug therapy
CPT/HCPCS: 45385; 45380; 45381; 43239; 71045; 74018; 88305; 88313; 88342; J0171; J2003; J2704

== ENCOUNTER → 2024-08-17 07:36 | Outpatient (BNV) | payer BC, SELFPAY | PROVIDERS: PCP Internal Medicine; Visit Provider Internal Medicine Gastroenterology | DX: K62.5 Hemorrhage of anus and rectum (principal); D12.0 Benign neoplasm of cecum; D12.2 Benign neoplasm of ascending colon; D12.5 Benign neoplasm of sigmoid colon; K57.30 Diverticulosis of large intestine without perforation or abscess without bleeding; K64.8 Other hemorrhoids; K20.90 Esophagitis, unspecified without bleeding; K29.70 Gastritis, unspecified, without bleeding | CPT/HCPCS: 43239; 45380; 45381; 45385 ==

== ENCOUNTER 2024-08-18 15:58 | Emergency (ER) | payer BC, SELFPAY ==
--- NOTE | ~2024-08-18 | CT_ITS ---
EXAMINATION: CT ABDOMEN AND PELVIS WITHOUT CONTRAST CLINICAL INFORMATION: Abdominal pain status post colonoscopy COMPARISON: None available. TECHNIQUE: Multidetector volumetric imaging was performed from the superior aspect of the liver through the pubic symphysis. Sagittal and coronal reformatted images were obtained on the technologist's workstation. This CT examination was performed using dose optimization techniques as appropriate, variously including the following: *Automated exposure control *Adjustment of mA and/or kV according to patient size (this includes techniques or standardized protocols for targeted exams where dose is matched to indication/reason for exam; i.e. extremities or head) *Use of iterative reconstruction technique DLP: 972 mGy-cm FINDINGS: LUNG BASES: The visualized lung bases are unremarkable. LIVER, GALLBLADDER, AND BILIARY TREE: The liver is normal in size, shape, and attenuation. No focal hepatic lesion or biliary ductal dilatation is present. Prior cholecystectomy. PANCREAS: Unremarkable. SPLEEN: Unremarkable. ADRENAL GLANDS: Unremarkable. KIDNEYS AND URETERS: The kidneys are normal in size, shape, and attenuation. No hydronephrosis, hydroureter, or calculi seen. No perinephric stranding. BLADDER: Decompressed. GASTROINTESTINAL TRACT: The stomach and small bowel are unremarkable. There is wall thickening of the proximal sigmoid/distal descending colon with mild surrounding inflammatory changes. Multiple diverticula. ABDOMINAL WALL: No significant hernia is appreciated. LYMPH NODES: Normal. VASCULAR: Unremarkable. PELVIC VISCERA: Unremarkable. OSSEOUS STRUCTURES: Unremarkable. CT/CT abdomen pelvis wo IV con IMPRESSION: Wall thickening of the proximal sigmoid/distal descending colon with mild surrounding inflammatory changes. No perforation. Fleischner guidelines were followed. Electronically signed by: Ramya Parra MD 08/18/2024 07:14 PM [facility]ST[facility] HAWKINS
[2024-08-18 16:07] VITALS: BP 139/71; PULSE 87; RESP 18; TEMP 37.1; O2SAT 97; BMI 36.7
--- NOTE | 2024-08-18 16:08 | ED_ITS ---
HPI - General Adult General Chief complaint: Abdominal Pain Stated complaint: Abd pain, nausea Time Seen by Provider: 08/18/24 20:52 History of Present Illness ED Provider: Yanira WRIGHT narrative: The patient is a 54-year-old woman who presents to the emergency room the day after having had a colonoscopy. The patient had a finding of diverticulosis as well as 3 colonic polyps. The patient reports that she had abdominal pain fairly soon after the end of the procedure. She went home and had some food yesterday but had ongoing and worsening left lower quadrant abdominal pain and ate very little today. She eventually came to the emergency department because of the abdominal pain. The patient does not know if she had a fever at home. She reports feeling chilled and sweaty but did not check her temperature. She has not had a bowel movement since the procedure. No vomiting. Related Data Home Medications ?Medication ?Instructions ?Recorded ?Confirmed albuterol sulfate 90 mcg/actuation 2 puff inhalation Q4-6H PRN 12/01/23 04/11/24 aerosol inhaler Shortness Of Breath Or Wheezing levothyroxine 200 mcg tablet 200 mcg PO DAILY 12/01/23 04/11/24 trazodone 150 mg tablet 150 mg PO BEDTIME 12/01/23 04/11/24 Previous Rx's ?Medication ?Instructions ?Recorded amoxicillin 875 mg-potassium 1 tab PO BID #20 tabs 08/19/24 clavulanate 125 mg tablet Allergies Allergy/AdvReac Type Severity Reaction Status Date / Time No Known Allergies Allergy Verified 08/18/24 16:09 Review of Systems 2 Review of Systems: Yes all other systems are reviewed and are negative PMFSH Past Medical History Medical History (Updated 08/19/24 @ 00:36 by Monroe Doyle MD) Marcos's thyroiditis Chronic fatigue Depression Upper abdominal pain Hypertension Surgical History (Updated 08/15/24 @ 11:13 by Molly Bermudez RN) Hx of cholecystectomy Hx of colonoscopy History of varicose vein ligation and stripping H/O breast biopsy Social History Social History Alcohol intake: current Alcohol intake frequency: does not drink Patient Tobacco Use Status: Never used Tobacco Smoked in Last 30 Days: No Use of substances other than those prescribed or required for medical reasons: No Advance Directives: No Advance Directives Information Provided: No Physical Exam ED Vital Signs: Vital Signs - 24 hr 08/18/24 16:07 08/18/24 20:14 08/18/24 22:47 Temperature 98.8 F 98.4 F 97.8 F Pulse Rate 87 74 67 Respiratory Rate 18 16 16 Blood Pressure 139/71 105/76 114/58 L Pulse Oximetry 97 97 97 Oxygen Delivery Method Room Air Room Air Room Air 08/18/24 23:18 08/19/24 00:00 08/19/24 00:27 Temperature 98.0 F Pulse Rate 62 Respiratory Rate 12 16 12 Blood Pressure 115/76 Pulse Oximetry 96 Oxygen Delivery Method Room Air 08/19/24 01:11 Temperature 98.0 F Pulse Rate 62 Respiratory Rate 16 Blood Pressure 115/76 Pulse Oximetry 96 Oxygen Delivery Method Room Air BMI result Body Mass Index 36.7 Const Other: The patient is awake and alert. She seems mildly uncomfortable. HENMT Other: Face is symmetrical. Mucous membranes moist. Eyes General: appearance normal, both eyes and all related structures Neck Neck: Yes full ROM Resp Effort & Inspection: normal respiratory effort Auscultation: clear to auscultation bilaterally Cardio Rate: regular rate Rhythm: regular rhythm Heart sounds: S1 normal heart sound present and S2 normal heart sound present GI Other: The abdomen is soft. She is quite tender in the left lower quadrant. Skin Other: Skin is pale and dry Neuro Other: The patient is awake and alert. She seems tired but has a normal mental status. Cranial nerves are grossly intact. She moves her extremities normally. She has a normal gait. Extrem Other: No peripheral edema Course Course Course Narrative: This is an RME done by KIKE Moore: Additional HPI, ROS, PE not included below will be deferred to primary provider. 54-year-old female presents with abdominal pain worse on the left lower quadrant, had a colonoscopy done yesterday and EGD. This was done by Dr. Singh On exam patient appears visibly uncomfortable. Vital signs are stable. Medications Administered Discontinued Medications Generic Name Dose Route Start Last Admin Trade Name Freq PRN Reason Stop Dose Admin Ceftriaxone Sodium 2 gm 08/18/24 21:27 08/18/24 21:49 Ceftriaxone Sodium 2 Gm Vial IVPUSH 08/18/24 21:28 2 gm ONCE ONE Administration Lactated Ringer's 1,000 mls @ 999 mls/hr 08/18/24 21:15 08/19/24 00:11 Lr IV 08/18/24 22:15 Infused .Q1H1M FRANCO Infusion Metronidazole 500 mg in 100 mls @ 100 mls/hr 08/18/24 21:28 08/18/24 22:53 Flagyl IV 08/18/24 22:27 Infused ONCE ONE Infusion Acetaminophen 1,000 mg in 100 mls @ 400 mls/hr 08/18/24 23:08 08/18/24 23:22 Ofirmev IV 08/18/24 23:22 Infused ONCE ONE Infusion Ketorolac Tromethamine 10 mg 08/18/24 21:05 08/18/24 21:26 Ketorolac Tromethamine 15 Mg/Ml Vial IVPUSH 08/18/24 21:06 10 mg ONCE ONE Administration Ondansetron HCl 4 mg 08/18/24 21:05 08/18/24 21:26 Ondansetron Hcl 4 Mg/2 Ml Vial IVPUSH 08/18/24 21:06 4 mg ONCE ONE Administration Medical Decision Making Medical Decision Making [facility] Narrative: The patient is a 54-year-old woman who presents the day after an outpatient colonoscopy. Colonoscopy revealed significant diverticulosis. Three biopsies were taken in the colon, one from a sessile polyp in the sigmoid colon. The patient was not found to have a fever here in the emergency room [place] [id number]. Additionally her CRP is quite elevated at 15. A CT scan of the abdomen and pelvis shows wall thickening of the distal descending colon into the proximal sigmoid colon with mild surrounding inflammatory changes. No perforation. Given the patient's elevated white count, elevated CRP, findings of diverticulosis on her colonoscopy yesterday, and her significant left lower quadrant tenderness I think that this finding of colitis on CT scan is probably an equivalent of diverticulitis. The patient was given 2 g of IV ceftriaxone and 500 mg of IV metronidazole. She was given IV fluids. She was given ketorolac and acetaminophen IV for discomfort. She was observed. Ultimately she felt that she was well enough to try outpatient management. I have sent a prescription for Augmentin to her pharmacy and she was advised to take a dose firstst thing in the morning. 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 Lab Data 08/18/24 16:21 08/18/24 16:22 Labs: Lab Results 08/18/24 08/18/24 Range/Units 16:21 16:22 WBC 16.0 H (4.8-10.8) X10*3/uL RBC 4.68 (4.20-5.50) X10*6/uL Hgb 14.0 (12.0-16.0) g/dl Hct 40.7 (37.0-47.0) % MCV 87.0 (80.0-98.0) fL MCH 29.9 (27.0-33.0) pg MCHC 34.4 (31.0-35.0) g/dl RDW 12.5 (11.0-16.0) % Plt Count 227 (160-400) X10*3/uL MPV 9.9 (9.4-12.3) fL Immature Gran % (Auto) 0.3 (0.0-0.4) % Neut % (Auto) 77.7 H (45-73) % Lymph % (Auto) 16.0 L (20-40) % [place] % (Auto) 5.7 (2-11) % Eos % (Auto) 0.1 (0-4) % Baso % (Auto) 0.2 (0-2) % Lymph # (Auto) 2.6 (1.2-4.9) X10*3/uL [place] # (Auto) 0.9 (0.1-1.2) X10*3/uL Eos # (Auto) 0.0 (0.0-0.4) X10*3/uL Baso # (Auto) 0.0 (0.0-0.2) X10*3/uL Abs Immat Gran (auto) 0.05 H (0.00-0.03) X10*3/uL Absolute Neuts (auto) 12.4 H (2.0-8.3) x10*3/uL Absolute Nucleated RBC 0.000 (0.0-0.012) X10*3/uL Nucleated RBC % (auto) 0.0 (0.0-0.2) /100WBC PT 13.0 H (10.9-12.4) SEC INR 1.1 (0.9-1.1) Sodium 139 (135-145) mmol/L Potassium 3.5 (3.3-5.1) mmol/L Chloride 108 (96-108) mmol/L Carbon Dioxide 25 (22-29) mmol/L Anion Gap 10 L (12-20) BUN 10 (9-16) mg/dL Creatinine 0.88 (0.5-1.4) mg/dL Estim Creat Clear Calc 93.7 Estimated GFR > 60 Random Glucose 110 (60-115) mg/dL Lactic Acid 0.8 (0.5-2.0) mmol/L Calcium 9.8 (8.4-10.2) mg/dL Magnesium 1.7 (1.6-2.6) mg/dL Total Bilirubin 1.6 H (0.0-1.0) mg/dL AST 20 (5-31) U/L ALT 19 (0-31) U/L Alkaline Phosphatase 95 (39-117) U/L C-Reactive Protein 15.55 H (< or = 0.50) mg/dL Total Protein 7.0 (6.5-8.0) g/dL Albumin 4.1 (3.5-5.0) g/dL Lipase 13 (8-78) U/L Discharge Plan Discharge Clinical Impression: Acute diverticulitis Patient Disposition: Home, Self-Care Instructions: Diverticulitis (ED) Additional Instructions: Your CT scan showed inflammation in the region of your sigmoid colon which I suspect is diverticulitis. You received IV antibiotics here tonight. Please lease picker the prescription for amoxicillin/clavulanate (also known as Augmentin) that [facility] in [place]. Please pick this up in the morning and take your first dose when you pick it up in the morning. Eat a bland diet. Please stay in touch with Dr. Singh with any additional questions. Please call his office on Wednesday to set up a follow up appointment. Return to the emergency room if you feel significantly worse. Prescriptions: New amoxicillin-pot clavulanate 875-125 mg tablet 1 tab PO BID Qty: 20 0RF No Action trazodone 150 mg tablet 150 mg PO BEDTIME levothyroxine 200 mcg tablet 200 mcg PO DAILY albuterol sulfate 90 mcg/actuation HFA aerosol inhaler 2 puff inhalation Q4-6H PRN (Reason: Shortness Of Breath Or Wheezing) Referrals: Jarvis Singh MD [Physician] - (Diverticulitis) Percy Paul MD [Primary Care Provider] - (Diverticulitis) Interventions: ED Discharge Assessment Last Done: 08/19/24 01:11 Discharge Date/Time: 08/19/24 01:16 Print Language: Arabic
[2024-08-18 16:27] LABS: MANUAL DIFF FLAG NO
[2024-08-18 16:29] LABS: Basophils Percent Auto 0.2 % (0-2); Eosinophils Percent Auto 0.1 % (0-4); Hematocrit 40.7 % (37.0-47.0); Imm Gran Abs Auto 0.05 X10*3/uL (0.00-0.03); Imm Gran Pct Auto 0.3 % (0.0-0.4); Lymphocytes Absolute Auto 2.6 X10*3/uL (1.2-4.9); Mean Corpuscular HGB Conc 34.4 g/dl (31.0-35.0); Mean Corpuscular Hemoglobin 29.9 pg (27.0-33.0); Mean Platelet Volume 9.9 fL (9.4-12.3); Monocytes Absolute Auto 0.9 X10*3/uL (0.1-1.2); Monocytes Percent Auto 5.7 % (2-11); Neutrophils Absolute Auto 12.4 x10*3/uL (2.0-8.3); Neutrophils Percent Auto 77.7 % (45-73); Platelet Count 227 X10*3/uL (160-400); Red Blood Count 4.68 X10*6/uL (4.20-5.50); Red Cell Distribution Width 12.5 % (11.0-16.0)
[2024-08-18 16:34] LABS: INTERNATIONAL NORM RATIO 1.1 (0.9-1.1)
[2024-08-18 16:42] LABS: Lactic Acid 0.8 mmol/L (0.5-2.0)
[2024-08-18 16:43] LABS: Alanine Aminotransferase 19 U/L (0-31); Albumin Level 4.1 g/dL (3.5-5.0); Alkaline Phosphatase 95 U/L (39-117); Anion Gap 10 (12-20); Aspartate Amino Transferase 20 U/L (5-31); Bilirubin Total 1.6 mg/dL (0.0-1.0); Blood Urea Nitrogen 10 mg/dL (9-16); Calcium 9.8 mg/dL (8.4-10.2); Carbon Dioxide 25 mmol/L (22-29); Chloride 108 mmol/L (96-108); Creatinine Clr Calc Pharmacy 93.7; Estimated Glomerular Filt Rate > 60; Glucose Random 110 mg/dL (60-115); Lipase 13 U/L (8-78); Magnesium 1.7 mg/dL (1.6-2.6); Potassium 3.5 mmol/L (3.3-5.1); Sodium 139 mmol/L (135-145)
[2024-08-18 20:14] VITALS: BP 105/76; PULSE 74; RESP 16; TEMP 36.9; O2SAT 97
--- NOTE | 2024-08-18 20:32 | PC.NURSE ---
Pt is a&ox3, no signs of distress. Pt reports 8/10 abd pain more to left side, nausea no vomiting Pt reports just had a colonoscopy done and was sent here by provider due to pain Plan of care ongoing.
[2024-08-18 21:11] LABS: C Reactive Protein 15.55 mg/dL (< or = 0.50)
[2024-08-18] MEDS: Lactated Ringers 1,000 ML 999 ML IV (21:22)
[2024-08-18] MEDS: Ketorolac Tromethamine 15 MG/ML VIAL 10 MG IVPUSH (21:26)
[2024-08-18] MEDS: ondansetron HCL 4 MG/2 ML VIAL IVPUSH (21:26)
--- NOTE | 2024-08-18 21:35 | PC.NURSE ---
Pt medicated per [facility] Plan of care ongoing
[2024-08-18] MEDS: cefTRIAXone sodium 2 GM VIAL IVPUSH (21:49)
[2024-08-18] MEDS: metroNIDAZOLE/NS 500 MG/100 ML PIGGYBACK 100 MG IV (21:53)
--- NOTE | 2024-08-18 22:01 | PC.NURSE ---
Pt medicated per [facility] Plan of care ongoing.
[2024-08-18 22:47] VITALS: BP 114/58; PULSE 67; RESP 16; TEMP 36.6; O2SAT 97
[2024-08-18] MEDS: Acetaminophen 1,000 MG/100 ML PIGGYBACK 400 MG IV (23:17)
[2024-08-18 23:18] VITALS: RESP 12
--- NOTE | 2024-08-18 23:21 | PC.NURSE ---
Pt medicated per [facility] Plan of care ongoing
[2024-08-19] VITALS: BP 115/76; PULSE 62; RESP 16; TEMP 36.7; O2SAT 96
--- NOTE | 2024-08-19 00:12 | PC.NURSE ---
Provider Monroe d/c LR. Plan of care ongoing.
[2024-08-19 00:27] VITALS: RESP 12
[2024-08-19 01:11] VITALS: BP 115/76; PULSE 62; RESP 16; TEMP 36.7; O2SAT 96
== END 2024-08-19 01:16 | disposition home or self-care (01) ==
PROVIDERS: Physician Assistant; Emergency Provider Emergency Medicine; PCP Internal Medicine
DX: K57.32 Diverticulitis of large intestine without perforation or abscess without bleeding (principal); R10.32 Left lower quadrant pain; I10 Essential (primary) hypertension
CPT/HCPCS: 36415; 74176; 80053; 83605; 83690; 83735; 85025; 85610; 86140; 87040; 96361; 96374; 96375; 99284; J0131; J0696; J1836; J1885; J2405; J7120

== ENCOUNTER 2024-08-23 16:14 | Outpatient (REF) | payer BC, SELFPAY ==
[2024-08-24 16:08] LABS: Transglutaminase Ab IgG <1.0 U/mL; Transglutaminase IgA <1.0 U/mL
== END 2024-08-23 16:15 | disposition home or self-care (01) ==
LOC: HO.LAB 16:14
PROVIDERS: PCP Internal Medicine; Visit Provider Internal Medicine Gastroenterology
DX: R10.33 Periumbilical pain (principal); G89.29 Other chronic pain; A04.8 Other specified bacterial intestinal infections; G93.32 Myalgic encephalomyelitis/chronic fatigue syndrome
CPT/HCPCS: 36415; 86364